=== PATIENT | male | born 1965 | race Caucasian/White ===

== ENCOUNTER → 2023-11-18 17:59 | Outpatient (REF) | payer OTHER, SELFPAY | LOC: RAD 17:59 | PROVIDERS: ATTENDING PHYSICIAN Nurse Practitioner Family | DX: M54.9 Dorsalgia, unspecified (principal) | CPT/HCPCS: 72110 ==

== ENCOUNTER → 2023-12-24 15:35 | Outpatient (REF) | payer OTHER, SELFPAY | LOC: MRI 3T 15:35 | PROVIDERS: ATTENDING PHYSICIAN Nurse Practitioner Family; FAMILY PHYSICIAN Family Medicine | DX: M54.9 Dorsalgia, unspecified (principal) | CPT/HCPCS: 72158; A9575 ==

== ENCOUNTER → 2024-09-10 14:02 | Outpatient (REF) | payer OTHER, SELFPAY | LOC: RAD 14:02 | PROVIDERS: ATTENDING PHYSICIAN Family Medicine | DX: M25.562 Pain in left knee (principal) | CPT/HCPCS: 73564 ==